=== PATIENT | male | born 1985 | race Caucasian/White ===

== ENCOUNTER 2023-08-23 19:27 | Emergency (ER) | payer OTHER, SELFPAY ==
[2023-08-23 19:45] VITALS: BP 171/130; PULSE 116; RESP 20; TEMP 37.9; O2SAT 99
[2023-08-23 22:28] VITALS: BP 202/132; PULSE 103; RESP 18; TEMP 37.3; O2SAT 98
[2023-08-23 23:10] LABS: Influenza A QL RT-PCR Negative (Negative); Influenza B QL RT-PCR Negative (Negative); RSV RNA, RT-PCR Negative (Negative); SARS-CoV-2 RNA PCR Positive (Negative)
[2023-08-23 23:40] LABS: Basophils Percent Auto 0.5 % (0.2-1.2); Eosinophils Percent Auto 0.5 % (0-4.4); Hematocrit 47.9 % (42.0-52.0); Hemoglobin 16.5 g/dL (14.0-18.0); Immature Granulocyte Absolute 0.04 K/mm3 (0.00-0.031); Immature Granulocyte Percent A 0.5 % (0-0.5); Lymphocytes Absolute Auto 0.96 K/mm3 (0.9-3.2); Lymphocytes Percent Auto 10.8 % (18.3-44.2); Mean Corpuscular HGB Conc 34.4 g/dl (32-36); Mean Corpuscular Hemoglobin 28.4 pg (26-34); Mean Corpuscular Volume 82.4 fl (80-100); Mean Platelet Volume 11.1 fl (7.4-10.4); Monocytes Absolute Auto 0.9 K/mm3 (0.1-0.6); Monocytes Percent Auto 9.6 % (2.6-8.5); Neutrophils Percent Auto 78.1 % (45.5-73.1); Platelet Count Result 222 k/mm3 (150-375); Red Blood Count 5.81 M/mm3 (4.6-6.20); Red Cell Distribution Width 13.2 % (11.5-14.5); White Blood Count 8.9 K/mm3 (4.5-10.0)
[2023-08-23 23:46] LABS: Alanine Aminotransferase 30 U/L (6-50); Albumin Level 4.8 g/dL (3.5-5.1); Alkaline Phosphatase 94 U/L (38-126); Anion Gap 8 mmol/L (8-16); Aspartate Amino Transferase 31 U/L (17-59); Bilirubin,Total 1.1 mg/dL (0.2-1.3); Blood Urea Nitrogen 14 mg/dL (9-20); Calcium 9.7 mg/dL (8.4-10.2); Carbon Dioxide 29 mmol/L (22-30); Chloride 103 mmol/L (98-107); Estimated CRCL calculation 114 ml/min; Estimated Glomerular Filt Rate > 60; Glucose 98 mg/dL (65-110); Potassium 3.2 mmol/L (3.4-5.0); Sodium 140 mmol/L (137-145)
--- NOTE | 2023-08-24 | ECG_ITS ---
Measurements Intervals [place] Rate: 106 P: 66 [place]: 166 QRS: -60 QRSD: 96 T: 132 QT: 327 QTc: 435 Interpretive Statements SINUS TACHYCARDIA LEFT ATRIAL ENLARGEMENT [-0.15mV P WAVE IN V1/V2] MARKED LEFT AXIS DEVIATION [QRS AXIS < -30] INCOMPLETE RIGHT BUNDLE BRANCH BLOCK [90+ ms QRS DURATION, TERMINAL R IN V1/V2, 40+ ms S IN I/aVL/V4/V5/V6] POSSIBLE ANTERIOR MYOCARDIAL INFARCTION , OF INDETERMINATE AGE [30 ms Q WAVE IN V3/V4, OR R < 0.2 mV IN V4] MODERATE T-WAVE ABNORMALITY, CONSIDER LATERAL ISCHEMIA [-0.1+ mV T WAVE IN I/aVL/V5/V6] NO PREVIOUS ECG AVAILABLE FOR COMPARISON Electronically Signed On 08-24-2023 15:23:00 AMMUNITION ASSEMBLY I LABORER by Ramu Leiva M.D.
[2023-08-24] MEDS: SODIUM CHLORIDE 0.9% IV 1,000 ML 999 ML IV CONT (00:15)
[2023-08-24 00:16] VITALS: BP 182/111; PULSE 120; RESP 23; O2SAT 96
[2023-08-24 00:17] VITALS: PULSE 110; RESP 15; O2SAT 98
[2023-08-24] MEDS: ACETAMINOPHEN 500 MG TABLET 1000 MG PO (00:20)
[2023-08-24] MEDS: hydrALAZINE HCL 20 MG/ML VIAL 10 MG IV PUSH (00:21)
--- NOTE | 2023-08-24 00:48 | ED.GENADULT ---
HPI - General Adult General Chief complaint: Recheck/Abnormal Lab/Rx Stated complaint: fever/htn Time Seen by Provider: 08/23/23 23:13 History of Present Illness HPI narrative: 37-year-old male presenting to emergency department for evaluation of hypertension increased body aches. Patient began having minor symptoms on Wednesday then then worsened into Wednesday. Patient does describe shortness of breath fatigue headache and body ache. Patient denies any chest pain Patient has history of hypertension but did not take his blood pressure medications today since she usually takes them at approximately 11:00 p.m.. Patient reports his blood pressure typically runs around 150 systolic. Related Data Allergies Allergy/AdvReac Type Severity Reaction Status Date / Time No Known Allergies Allergy Verified 08/23/23 19:28 Review of Systems Review of Systems: All systems reviewed & are unremarkable except as noted in HPI and below Exam Narrative: APPEARANCE: Well appearing, no pain, no distress, well-nourished. HEAD: normocephalic, atraumatic. EYES: PERRLA/EOMI, conjunctivae clear. NOSE: Normal no drainage EARS:TMS clear with good light reflex. THROAT: Pharynx clear, no exudate. NECK: Supple. No adenopathy, no masses. RESPIRATORY: Airway patent, respirations nonlabored. Clear to auscultation bilaterally, no rales, rhonchi, wheezing. CARDIOVASCULAR: Regular rate and rhythm without murmurs rubs or gallops. ABDOMINAL: Soft, nontender, nondistended, normal bowel sounds MUSCULOSKELETAL: Moves all extremities. Strength/ROM intact, No edema, No calf tenderness. NEURO: Alert. Cranial nerves II through XII intact. Grossly intact SKIN: Warm, dry. Normal Color Course Course Emergency Course: 37-year-old male presents emergency department for evaluation of increased generalized fatigue, body aches and hypertension. Patient was treated with his home medications for his blood pressure including his metoprolol losartan and amlodipine. Patient was also treated with a dose of IV hydralazine. Patient did test positive for COVID. patient did have a low-grade fever but has no leukocytosis and patient has a stable hemoglobin of 16.5. No significant abnormalities on the patient's CMP. Patient did test positive for COVID. Vital Signs Vital signs: Vital Signs Temperature 100.3 F H 08/23/23 19:45 Pulse Rate 116 H 08/23/23 19:45 Respiratory Rate 20 08/23/23 19:45 Blood Pressure 171/130 H 08/23/23 19:45 Pulse Oximetry 99 08/23/23 19:45 Oxygen Delivery Room Air 08/23/23 19:45 Temperature 98.3 F 08/24/23 01:42 Pulse Rate 88 08/24/23 02:14 Respiratory Rate 16 08/24/23 02:14 Blood Pressure 157/95 H 08/24/23 02:14 Pulse Oximetry 97 08/24/23 02:14 Oxygen Delivery Room Air 08/23/23 23:39 Medical Decision Making Differential Diagnosis Differential Diagnosis: COVID, pneumonia, influenza, RSV, hypertension Vital Signs Vital Signs: Vital Signs Temperature 100.3 F H 08/23/23 19:45 Pulse Rate 116 H 08/23/23 19:45 Respiratory Rate 20 08/23/23 19:45 Blood Pressure 171/130 H 08/23/23 19:45 Pulse Oximetry 99 08/23/23 19:45 Oxygen Delivery Room Air 08/23/23 19:45 Temperature 98.3 F 08/24/23 01:42 Pulse Rate 88 08/24/23 02:14 Respiratory Rate 16 08/24/23 02:14 Blood Pressure 157/95 H 08/24/23 02:14 Pulse Oximetry 97 08/24/23 02:14 Oxygen Delivery Room Air 08/23/23 23:39 Lab Data 08/23/23 22:46 08/23/23 22:46 Labs: Lab Results 08/23/23 08/23/23 08/24/23 Range/Units 22:27 22:46 00:34 WBC 8.9 (4.5-10.0) K/mm3 RBC 5.81 (4.6-6.20) M/mm3 Hgb 16.5 (14.0-18.0) g/dL Hct 47.9 (42.0-52.0) % MCV 82.4 (80-100) fl MCH 28.4 (26-34) pg MCHC 34.4 (32-36) g/dl RDW 13.2 (11.5-14.5) % Plt Count 222 (150-375) k/mm3 MPV 11.1 H (7.4-10.4) fl Immature Gran % (Auto) 0.5 (0-0.5) % Neut %
[2023-08-24 01:02] LABS: D Dimer < 0.27 ug/mL (<0.48)
[2023-08-24 01:05] VITALS: PULSE 117; RESP 15; O2SAT 99
[2023-08-24 01:16] VITALS: BP 184/110; PULSE 116; PULSE 118; RESP 15; O2SAT 99
[2023-08-24] MEDS: METOPROLOL TARTRATE 25 MG TABLET 100 MG PO (01:16)
[2023-08-24] MEDS: amLODIPine BESYLATE 5 MG TABLET 10 MG PO (01:16)
[2023-08-24] MEDS: LOSARTAN POTASSIUM 100 MG TABLET PO (01:17)
[2023-08-24] MEDS: KETOROLAC 15 MG/ML VIAL (*BKC) IV PUSH (01:29)
[2023-08-24 01:42] VITALS: TEMP 36.8
[2023-08-24 02:14] VITALS: BP 157/95; PULSE 88; RESP 16; O2SAT 97
== END 2023-08-24 02:22 | disposition home or self-care (01) ==
PROVIDERS: Emergency Provider Emergency Medicine
DX: U07.1 COVID-19 (principal); I10 Essential (primary) hypertension; R00.0 Tachycardia, unspecified; R94.31 Abnormal electrocardiogram [ECG] [EKG]; I45.10 Unspecified right bundle-branch block
CPT/HCPCS: 36415; 80053; 85025; 85380; 87637; 93005; 96361; 96374; 96375; 99284; A9270; J0360; J1885; J7030

== ENCOUNTER 2024-01-17 12:45 | Outpatient (CLI) | payer OTHER, SELFPAY ==
[2024-01-17 15:13] LABS: Basophils Percent Auto 0.4 % (0.2-1.2); Eosinophils Absolute Auto 0.3 K/mm3 (0-0.3); Hematocrit 45.5 % (42.0-52.0); Hemoglobin 15.5 g/dL (14.0-18.0); Immature Granulocyte Absolute 0.04 K/mm3 (0.00-0.031); Immature Granulocyte Percent A 0.4 % (0-0.5); Lymphocytes Absolute Auto 1.44 K/mm3 (0.9-3.2); Lymphocytes Percent Auto 15.2 % (18.3-44.2); Mean Corpuscular HGB Conc 34.1 g/dl (32-36); Mean Corpuscular Hemoglobin 28.9 pg (26-34); Mean Corpuscular Volume 84.7 fl (80-100); Mean Platelet Volume 11.5 fl (7.4-10.4); Monocytes Absolute Auto 0.5 K/mm3 (0.1-0.6); Neutrophils Absolute Auto 7.2 K/mm3 (1.3-6.7); Platelet Count Result 226 k/mm3 (150-375); Red Blood Count 5.37 M/mm3 (4.6-6.20); Red Cell Distribution Width 13.3 % (11.5-14.5); White Blood Count 9.5 K/mm3 (4.5-10.0)
[2024-01-17 15:19] LABS: Alanine Aminotransferase 24 U/L (6-50); Albumin Level 4.6 g/dL (3.5-5.1); Alkaline Phosphatase 64 U/L (38-126); Anion Gap 9 mmol/L (4-12); Aspartate Amino Transferase 43 U/L (17-59); Bilirubin,Total 0.9 mg/dL (0.2-1.3); Blood Urea Nitrogen 18 mg/dL (9-20); Calcium 9.1 mg/dL (8.4-10.2); Carbon Dioxide 31 mmol/L (22-30); Chloride 102 mmol/L (98-107); Cholesterol 210 mg/dL (0-200); Estimated Glomerular Filt Rate > 60; Glucose 97 mg/dL (65-110); HDL Direct 33 mg/dL; Potassium 3.9 mmol/L (3.4-5.0); Sodium 142 mmol/L (137-145); Triglycerides 229 mg/dL (<150)
[2024-01-17 15:30] LABS: LDL Cholesterol Direct 139 mg/dL
[2024-01-17 15:41] LABS: Creatinine Urine 161.5 mg/dL
[2024-01-17 16:00] LABS: MALB Creatinine Ratio 198.9 mg/g (0-30); Microalbumin Urine Random 321.3 mg/L (0-16.7)
== END 2024-01-17 12:46 | disposition home or self-care (01) ==
LOC: ANHGOSHLAB 12:47
PROVIDERS: PCP Internal Medicine; Visit Provider Nurse Practitioner
DX: E78.5 Hyperlipidemia, unspecified (principal); I10 Essential (primary) hypertension; Z13.29 Encounter for screening for other suspected endocrine disorder
CPT/HCPCS: 36415; 80053; 80061; 82043; 85025

== ENCOUNTER 2024-03-22 08:45 | Outpatient (CLI) | payer OTHER, SELFPAY ==
--- NOTE | 2024-03-22 08:52 | EST_ITS ---
Patient Info Name: Umberto Trevizoi Age: 38 years : 1985 Gender: Male Ht: 67 in Wt: 245 lbs BSA: 2.34 m2 HR: 76 bpm BP: 173 / 100 mmHg Exam Date: 03/22/2024 9:13 AM Exam Location: Echo Lab Patient Status: Outpatient Admit Date: 03/22/2024 Staff Ordering Physician: Nena Huitron NP Restaurant Kitchen And Service Manager: Kassandra Cardozo RDCS Attending Provider: DR. VELASQUEZ Referring Physician: Elana BARRAGAN; Exercise Technologist: Kassandra Cardozo RDCS Exercise Physician: Tre Velasquez DO Exam Type: CA stress echo Study Info Indications R06.02 - Shortness of breath Treadmill exercise stress echocardiogram is performed. Summary 1. 1. Negative Luis exercise stress test for ischemic ST changes by ECG criteria. 2. 2. Reduced functional capacity, achieving 10 METs of workload. 3. 3. Baseline hypertension with hypertensive response to exercise. 4. 4. Appropriate HR response to exercise. 5. 5. Appropriate HR recovery at 1 minute post exercise. 6. 6. Negative stress echocardiogram for ischemia by wall motion analysis. 7. 7. Patient informed of the above results. Stress Echo Findings Left Ventricle Appropriate increase in LV endocardial thickening with systole. Appropriate augmentation of contractility with systole. No wall motion abnormality. Left Ventricle Normal LV systolic function, no wall motion abnormality. Moderate LVH. Protocol: Luis Stress ECG Details Stage: REST Duration (min): 2 min : 40 sec Speed (mph): 0.0 Grade (%): 0 HR (bpm): 76 SBP (mmHg): 173 DBP (mmHg): 100 METS: --- Stage: REST Duration (min): 12 min : 16 sec Speed (mph): 0.0 Grade (%): 0 HR (bpm): 77 SBP (mmHg): 173 DBP (mmHg): 100 METS: --- Stage: STAGE 1 Duration (min): 1 min : 0 sec Speed (mph): 1.7 Grade (%): 10 HR (bpm): 103 SBP (mmHg): 173 DBP (mmHg): 100 METS: --- Stage: STAGE 1 Duration (min): 2 min : 0 sec Speed (mph): 1.7 Grade (%): 10 HR (bpm): 111 SBP (mmHg): 173 DBP (mmHg): 100 METS: --- Stage: STAGE 1 Duration (min): 3 min : 0 sec Speed (mph): 1.7 Grade (%): 10 HR (bpm): 113 SBP (mmHg): 213 DBP (mmHg): 84 METS: --- Stage: STAGE 2 Duration (min): 1 min : 0 sec Speed (mph): 2.5 Grade (%): 12 HR (bpm): 124 SBP (mmHg): 213 DBP (mmHg): 84 METS: --- Stage: STAGE 2 Duration (min): 2 min : 0 sec Speed (mph): 2.5 Grade (%): 12 HR (bpm): 131 SBP (mmHg): 219 DBP (mmHg): 90 METS: --- Stage: STAGE 2 Duration (min): 3 min : 0 sec Speed (mph): 2.5 Grade (%): 12 HR (bpm): 134 SBP (mmHg): 219 DBP (mmHg): 90 METS: --- Stage: STAGE 3 Duration (min): 1 min : 0 sec Speed (mph): 3.4 Grade (%): 14 HR (bpm): 143 SBP (mmHg): 235 DBP (mmHg): 93 METS: --- Stage: STAGE 3 Duration (min): 2 min : 0 sec Speed (mph): 3.4 Grade (%): 14 HR (bpm): 152 SBP (mmHg): 235 DBP (mmHg): 93 METS: --- Stage: STAGE 3 Duration (min): 2 min : 1 sec Speed (mph): 0.0 Grade (%): 0 HR (bpm): 152 SBP (mm
== END 2024-03-22 08:46 | disposition home or self-care (01) ==
PROVIDERS: PCP Internal Medicine; Visit Provider Nurse Practitioner
DX: R06.02 Shortness of breath (principal); I10 Essential (primary) hypertension
CPT/HCPCS: 93351

== ENCOUNTER 2024-05-25 21:59 | Observation (INO) | payer OTHER, SELFPAY ==
--- NOTE | ~2024-05-25 | XR_ITS ---
EXAMINATION: XR chest 1V portable DATE: 05/25/2024 22:33 INDICATION: Altered mental status. TECHNIQUE: A single frontal view of the chest was obtained. COMPARISON: None. FINDINGS: There is no pneumonia, pleural effusion, or pneumothorax. The heart size is normal. IMPRESSION: 1. No acute cardiopulmonary disease. Reviewed, dictated and finalized at location A. WARE TECHNICAL LEAD
--- NOTE | ~2024-05-25 | CT_ITS ---
EXAMINATION: CTA brain carotid DATE: 05/25/2024 22:28 INDICATION: Cerebrovascular accident. TECHNIQUE: Computed tomographic angiography (CTA) of the head was performed with 100 mL Omnipaque-350 intravenous contrast. CTA of the neck was performed with intravenous contrast. Automated exposure co ntrol and iterative reconstruction technique were employed. The dose-length product was 1170.17 mGy-c m. Maximum intensity projection and volume rendered 3D-reconstructions were created by the [employer]Vouchercloudi st on a separate workstation. COMPARISON: Head CT 05/25/2024 FINDINGS: HEAD CTA: There is no intracranial hemorrhage, acute infarction, or abnormal intracranial mass lesion . The ventricles are normal in size. There is mild mucosal thickening in the basal sinuses. The orbit s are normal. The mastoid air cells are normal. The vertebral arteries are codominant. There is no si gnificant stenosis of basilar artery or the posterior cerebral arteries. There is no significant sten osis of the intracranial internal carotid arteries or anterior or middle cerebral arteries. Anterior communicating artery is normal. There is no aneurysm. The posterior communicating arteries are normal . NECK CTA: There are no pathologically enlarged lymph nodes. There is no significant stenosis of the v ertebral arteries. There is no visible plaque in the proximal internal carotid arteries. There is 0% stenosis of the proximal right internal carotid artery relative to normal distal artery lumen diamete r (NASCET criteria). There is 0% stenosis of the proximal left internal carotid artery relative to no rmal distal artery lumen diameter. 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 There is chroni c height loss of numerous vertebral bodies, which may be developmental. IMPRESSION: 1. Normal brain. No aneurysm or significant intracranial arterial stenosis 2. 0% stenosis of the proximal internal carotid arteries relative to normal distal artery lumen diame ters (NASCET criteria). Reviewed, dictated and finalized at location A. ANALYSIS WELL LOGGING OPERATOR IMPRESSION: 1. Normal brain. No aneurysm or significant intracranial arterial stenosis 2. 0% stenosis of the proximal internal carotid arteries relative to normal dis paty artery lumen diameters (NASCET criteria).
--- NOTE | ~2024-05-25 | CT_ITS ---
EXAMINATION: CT brain wo con DATE: 05/25/2024 22:21 INDICATION: Altered mental status. TECHNIQUE: Computed tomography (CT) of the head was performed without intravenous contrast. The mA wa s adjusted according to patient size. Iterative reconstruction technique was employed. The dose-lengt h product was 756.67 mGy-cm. COMPARISON: None FINDINGS: There is no intracranial hemorrhage, acute infarction, or abnormal intracranial mass lesion . The ventricles are normal in size. There is mild mucosal thickening in the paranasal sinuses. The o rbits are normal. The mastoid air cells are normal. IMPRESSION: 1. Normal brain. I called this result to Dr. Vanegas. Reviewed, dictated and finalized at location A. TRICAL PRODUCTS ENGINEER
--- NOTE | ~2024-05-25 | MR_ITS ---
EXAMINATION: MR brain/brain stem wo con DATE: 05/27/2024 08:59 INDICATION: Syncope. Transient ischemic episode. Altered mental status. TECHNIQUE: Magnetic resonance imaging (MRI) of the brain and brainstem was performed without intraven ous contrast. Sequences included sagittal and axial T1-weighted SE, axial diffusion-weighted FS SE, a xial 3D SWAN, axial T2-weighted FLAIR, and axial T2-weighted FSE. Apparent diffusion coefficient (ADC ) maps were created. COMPARISON: None. FINDINGS: There are no areas of restricted diffusion to suggest acute infarction. No intracranial hemorrhage or abnormal intracranial mass lesion. A few tiny foci of nonspecific increased T2-weighted signal inten sity in the cerebral white matter which is within normal limits for age. There are no intraparenchyma l signal abnormalities seen on the other pulse sequences. The ventricles are symmetric and normal in size. There are no abnormal extra-axial fluid collections. Flow voids are seen in the cerebral arteri es on the T2-weighted sequences consistent with their expected patency. Mild mucosal thickening in th e bilateral ethmoid sinuses. Visualized orbits and soft tissues are unremarkable. IMPRESSION: 1. Normal for age brain. No acute intracranial process. Reviewed, dictated and finalized at location A. H STRIPPER
[2024-05-25 22:03] VITALS: BP 220/96; PULSE 90; RESP 18; TEMP 36.6; O2SAT 98
--- NOTE | 2024-05-25 22:06 | ECG_ITS ---
Test Date: 2024-05-25 22:34:21 Measurements Intervals [place] Rate: 98 P: 72 [place]: 152 QRS: -25 QRSD: 113 T: 71 QT: 382 QTc: 489 Interpretive Statements SINUS RHYTHM POSSIBLE LEFT ATRIAL ENLARGEMENT INCOMPLETE RIGHT BUNDLE BRANCH BLOCK DELAYED PRECORDIAL R/S TRANSITION ST-T WAVE ABNORMALITY IN LAT/HIGH LAT LEADS- CONSIDER ISCHEMIA BASELINE ARTIFACT- I, III, AVR, AVL ABNORMAL ECG No previous ECG available for comparison Electronically Signed On 05-26-2024 06:37:18 GRADES 1 THRU 6 HOME TEACHER by Tre Gannon D.O.
[2024-05-25 22:07] VITALS: BP 220/96; PULSE 96; RESP 15; TEMP 36.6; O2SAT 100
[2024-05-25 22:21] LABS: Basophils Absolute Auto 0.1 K/mm3 (0.0-0.1); Basophils Percent Auto 0.5 % (0.2-1.2); Eosinophils Absolute Auto 0.2 K/mm3 (0-0.3); Eosinophils Percent Auto 1.6 % (0-4.4); Hematocrit 46.4 % (42.0-52.0); Hemoglobin 17.3 g/dL (14.0-18.0); Immature Granulocyte Absolute 0.08 K/mm3 (0.00-0.031); Immature Granulocyte Percent A 0.6 % (0-0.5); Lymphocytes Absolute Auto 3.28 K/mm3 (0.9-3.2); Lymphocytes Percent Auto 23.2 % (18.3-44.2); Mean Corpuscular HGB Conc 37.3 g/dl (32-36); Mean Corpuscular Volume 80.4 fl (80-100); Mean Platelet Volume 10.6 fl (7.4-10.4); Monocytes Absolute Auto 0.7 K/mm3 (0.1-0.6); Monocytes Percent Auto 5.2 % (2.6-8.5); Neutrophils Absolute Auto 9.8 K/mm3 (1.3-6.7); Neutrophils Percent Auto 68.9 % (45.5-73.1); Platelet Count Result 310 k/mm3 (150-375); Red Blood Count 5.77 M/mm3 (4.6-6.20); Red Cell Distribution Width 12.6 % (11.5-14.5); White Blood Count 14.2 K/mm3 (4.5-10.0)
--- NOTE | 2024-05-25 22:29 | ED.NEUROSD ---
HPI - Neuro Symptoms/Deficit General Chief Complaint: Suspected CVA Stated Complaint: dizzy/nausea/vomiting/AMS Time Seen by Provider: 05/25/24 22:29 Source: patient Mode of arrival: ambulatory Limitations: clinical condition History of Present Illness HPI Narrative: PATIENT IS 38 YEARS OLD WHITE MALE CAME TO THE ED WITH HIS BECAUSE OF DIZZINESS AND VOMITING. THE IS TELLING ME THAT THE PATIENT GOT DIZZY, EVERYTHING SPINNING, ASSOCIATED NAUSEA AND FREQUENT VOMITING AND STARTED ACTING FUNNY. HISTORY OF HYPERTENSION, STARTED ON WOULD GO THE 2 WEEKS AGO, PATIENT WAS STRESS LATELY ABOUT THE PROCESS OF ADOPTION. HAVE UPPER RESPIRATORY SYMPTOMS 1 WEEK AGO, EXPOSED TO HIS BROTHER IN LOW HAD SIMILAR SYMPTOMS. . PATIENT DENIES ANY FOCAL WEAKNESS OR NUMBNESS. Related Data Allergies Allergy/AdvReac Type Severity Reaction Status Date / Time No Known Allergies Allergy Verified 05/12/24 10:37 Review of Systems Review of Systems: ROS unobtainable: Yes unobtainable due to medical condition PMFSH Past Medical History Medical History GERD (gastroesophageal reflux disease) Hyperlipidemia Hypertension Kidney stones FORREST (obstructive sleep apnea) Surgical History Surgical History History of extraction of renal calculus (~2021) Family History Family History Grandparent Cancer Heart disease Depression Father Hypertension Heart disease Depression Diabetes mellitus Mother Heart disease Thyroid disorder Sibling Hypertension Social History Social History Smoking status: Never smoker Alcohol intake: unknown Substance use type: does not use Do You Feel Safe in your Home?: Yes Lack of Transportation: No Lack of Food: Never True Current Housing: I Have Housing Concerned About Future Housing: No Difficulty Paying Gas/Electric Bills: No Difficulty Paying for Meds: No Currently Unemployed: No Education: High School Diploma/GED Difficulty w/ Childcare or Family Care: No Living arrangements: with family Exam Narrative: GENERAL APPEARANCE: WELL-DEVELOPED, WELL-NOURISHED , NON COOPERATIVE WITH QUESTION, WHISPERING, HYPERVENTILATING, SHAKING,HOLDING VOMITING BAG IN HANDS SKIN: NORMAL COLOR HEAD: NORMOCEPHALIC, NONTRAUMATIC EYES: CLEAR CONJUNCTIVA NECK: SUPPLE, NONTENDER CHEST AND RESPIRATORY: AIRWAY PATENT, NO RESPIRATORY DISTRESS, NO ACCESSORY MUSCLE USE HEART: REGULAR RATE/RHYTHM ABDOMEN: SOFT, NONTENDER, NO ORGANOMEGALY, QUIET BOWEL SOUNDS MUSCULOSKELETAL: PATIENT IS ABLE TO LIFT UPPER EXTREMITY SLOWLY MAXIMUM UP TO 45 DEGREE WITH SHAKING BILATERALLY. PATIENT UNABLE TO LEFT LOWER EXTREMITY BILATERALLY ABOVE THE LEVEL OF THE BED BECAUSE OF GENERAL WEAKNESS NEUROLOGIC: ALERT AND ORIENTED ?3, SURGICAL INSTRUMENT MAKER IS NORMAL TESTED, Course Vital Signs Vital signs: Vital Signs Temperature 36.6 C 05/25/24 22:03 Pulse Rate 90 05/25/24 22:03 Respiratory Rate 18 05/25/24 22:03 Blood Pressure 220/96 H 05/25/24 22:03 Pulse Oximetry 98 05/25/24 22:03 Temperature 36.6 C 05/25/24 22:07 Pulse Rate 92 05/25/24 22:48 Respiratory Rate 16 05/25/24 22:47 Blood Pressure 198/101 H 05/25/24 22:47 Pulse Oximetry 100 05/25/24 22:47 Oxygen Delivery Room Air 05/25/24 22:07 MDM - Neuro Symptoms/Deficit MDM Narrative Medical decision making narrative: PATIENT CAME TO THE ED BY PRIVATE CAR WITH HIS COMPLAINING OF DIZZINESS, NAUSEA, VOMITING, SHAKING, HYPERVENTILATING GENERALLY WEAK FROM HEAD TO TOES UNABLE TO STAND OR WALK VITAL SIGNS SHOWING BLOOD PRESSURE 220/96 PHYSICAL EXAMINATION SHOWING UNCOOPERATIVE PATIENT, WHISPERING, HYPERVENTILATING, SHAKING ALL OVER, WEAK ALL OVER, VOMITING UNABLE TO GET ANY CLEAR HISTORY FROM HIM, HIS AT THE BEDSIDE DIFFERENTIAL DIAGNOSIS CVA IS LESS LIKELY, ANXIETY LIKE SYMPTOMS, VERTIGO, DEHYDRATION, ELECTROLYTE IMBALANCE, PATIENT STARTED ON [place] RECENTLY WHICH CAN CAUSE DIZZINESS, NAUSEA, VOMITING AND UPSET STOMACH. COVID TEST CAME BACK POSITIVE BLOOD WORKUP TODAY INCLUDES CBC, CMP, TROPONIN, URINE DRUG SCREEN, ALCOHOL LEVEL, EKG, CHEST X-RAY, CT HEAD WITHOUT CONTRAST, CTA HEAD AND NECK SHOWED WBC OF 14.2, POTASSIUM 2.5, CHEST X-RAY SHOWED NO ACUTE ABNORMALITIES, CT HEAD WITHOUT CONTRAST SHOWED NO ACUTE ABNORMALITY CTA HEAD AND NECK SHOWED NO ACUTE ABNORMALITIES Differential Diagnosis Differential diagnosis: Likely other ( ABOVE) Medical Records Attestation: I reviewed the patient's medical records. Lab Data Attestation: I reviewed the patient's lab results. 05/25/24 22:15 05/25/24 22:15 Labs: Lab Results 05/25/24 05/25/24 05/26/24 Range/Units 22:15 23:39 00:17 WBC 14.2 H (4.5-10.0) K/mm3 RBC 5.77 (4.6-6.20) M/mm3 Hgb 17.3 (14.0-18.0) g/dL Hct 46.4 (42.0-52.0) % MCV 80.4 (80-100) fl MCH 30.0 (26-34) pg MCHC 37.3 H (32-36) g/dl RDW 12.6 (11.5-14.5) % Plt Count 310 (150-375) k/mm3 MPV 10.6 H (7.4-10.4) fl Immature Gran % (Auto) 0.6 H (0-0.5) % Neut % (Auto) 68.9 (45.5-73.1) % Lymph % (Auto) 23.2 (18.3-44.2) % [place] % (Auto) 5.2 (2.6-8.5) % Eos % (Auto) 1.6 (0-4.4) % Baso % (Auto) 0.5 (0.2-1.2) % Lymph # (Auto) 3.28 H (0.9-3.2) K/mm3 [place] # (Auto) 0.7 H (0.1-0.6) K/mm3 Eos # (Auto) 0.2 (0-0.3) K/mm3 Baso # (Auto) 0.1 (0.0-0.1) K/mm3 Abs Immat Gran (auto) 0.08 H (0.00-0.031) K/mm3 Absolute Neuts (auto) 9.8 H (1.3-6.7) K/mm3 Absolute Nucleated RBC 0.000 (0.0-0.012) K/mm3 Nucleated RBC % 0.0 (0.0-0.2) % PT 12.0 (11.1-14.7) Seconds INR 0.8 APTT 24.9 (22.3-36.8) Seconds Sodium 140 (137-145) mmol/L Potassium 2.5 L* (3.4-5.0) mmol/L Chloride 102 (98-107) mmol/L Carbon Dioxide 26 (22-30) mmol/L Anion Gap 12 (4-12) mmol/L BUN 17 (9-20) mg/dL Creatinine 1.10 (0.7-1.3) mg/dL Estim Creat Clear Calc Not Reportable Estimated GFR > 60 (59 - ) Glucose 136 H (65-110) mg/dL Calcium 9.7 (8.4-10.2) mg/dL Total Bilirubin 1.0 (0.2-1.3) mg/dL AST 33 (17-59) U/L ALT 24 (6-50) U/L Alkaline Phosphatase 114 (38-126) U/L Troponin I < 0.012 < 0.012 (0.000-0.034) ng/mL Total Protein 9.0 H (6.3-8.2) g/dL Albumin 5.1 (3.5-5.1) g/dL Urine Color Yellow (Yellow) Urine Appearance Clear (Clear) Urine pH 7.5 (5.0-9.0) Ur Specific [place] 1.034 (1.001-1.035) Urine Protein 1+ H (Negative) mg/dL Urine Glucose (UA) Negative (Negative) mg/dL Urine Ketones 1+ H (Negative) mg/dL Ur Blood (Man) Negative (Negative) Urine Nitrate Negative (Negative) Urine Bilirubin Negative (Negative) Urine Urobilinogen 0.2 (<2.0) mg/dL Leukocyte Esterase Rfl Negative (Negative) HUMBERTO/UL Urine RBC 0-2 (0-2) /hpf Urine WBC 0-5 (0-3) /hpf Ur Squamous Epith Cells None seen (Few) /hpf Urine Bacteria None seen /hpf Urine Casts 0-2 Urine Opiates Screen Pending Urine Methadone Screen Pending Ur Barbiturates Screen Pending Ur Phencyclidine Scrn Pending Ur Amphetamine Screen Pending U Benzodiazepines Scrn Pending Urine Cocaine Screen Pending U Cannabinoids Screen Pending Ethyl Alcohol < 10 (<10) mg/dL Influenza A (RT-PCR) Negative (Negative) Influenza B (RT-PCR) Negative (Negative) RSV (RT-PCR) Negative (Negative) SARS-CoV-2 RNA (RT-PCR) Positive A (Negative) Imaging Data Radiologist's impression: Impressions Head CT 11/21/24 22:23 IMPRESSION: 1. Normal brain. I called this result to Dr. Vanegas. Head/Neck CTA 05/25/24 22:33 IMPRESSION: 1. Normal brain. No aneurysm or significant intracranial arterial stenosis 2. 0% stenosis of the proximal internal carotid arteries relative to normal distal artery lumen diameters (NASCET criteria). Chest X-Ray 05/25/24 22:37 IMPRESSION: 1. No acute cardiopulmonary disease. ECG Data EKG #1: Attestation: I personally reviewed and interpreted this ECG as follows: ECG completion date: 05/25/24 Interpretation: NORMAL SINUS RHYTHM 98 BEATS PER MINUTE, LEFT ATRIAL ENLARGEMENT, BORDERLINE LEFT AXIS DEVIATION, INCOMPLETE RIGHT BUNDLE-BRANCH BLOCK, NONSPECIFIC ST T-WAVE ABNORMALITY, NO PREVIOUS EKG AVAILABLE FOR COMPARISON Critical Care Time Critical Care Time Critical Care Time: No Discharge Plan Discharge Clinical Impression: Vertigo, Acute hyperventilation syndrome, Acute hypokalemia, COVID-19 Patient Disposition: Still a Patient Condition: Stable Additional Instructions: ADMIT TO HOSPITALIST Prescriptions: No Action amlodipine 10 mg tablet 10 mg PO DAILY Qty: 90 1RF [place] 0.25 mg/0.5 mL pen injector 0.25 mg subcut WEEKLY Qty: 2 0RF Rx Instructions: administer weeks 1 through 4 of therapy hydrochlorothiazide 12.5 mg tablet 12.5 mg PO DAILY Qty: 90 1RF losartan 100 mg tablet 100 mg PO DAILY Qty: 90 1RF metoprolol tartrate 100 mg tablet 100 mg PO BID Qty: 180 1RF Follow-up/Referrals: Kelechi Padgett DO [Primary Care Provider] -
[2024-05-25 22:31] VITALS: BP 193/100; PULSE 92; RESP 16; O2SAT 100
[2024-05-25 22:32] LABS: INR 0.8; Partial Thromboplastin Time 24.9 Seconds (22.3-36.8)
[2024-05-25] MEDS: ONDANSETRON INJ 4 MG/2 ML VIAL 8 MG IV PUSH (22:37)
[2024-05-25 22:44] LABS: Alanine Aminotransferase 24 U/L (6-50); Albumin Level 5.1 g/dL (3.5-5.1); Alkaline Phosphatase 114 U/L (38-126); Anion Gap 12 mmol/L (4-12); Aspartate Amino Transferase 33 U/L (17-59); Blood Urea Nitrogen 17 mg/dL (9-20); Calcium 9.7 mg/dL (8.4-10.2); Carbon Dioxide 26 mmol/L (22-30); Chloride 102 mmol/L (98-107); Estimated Glomerular Filt Rate > 60; Glucose 136 mg/dL (65-110); Potassium 2.5 mmol/L (3.4-5.0); Sodium 140 mmol/L (137-145)
[2024-05-25 22:45] LABS: Troponin I < 0.012 ng/mL (0.000-0.034)
[2024-05-25 22:47] VITALS: BP 198/101; PULSE 94; RESP 16; O2SAT 100
[2024-05-25 22:48] VITALS: PULSE 92
[2024-05-25] MEDS: SODIUM CHLORIDE 0.9% IV 1,000 ML 999 ML IV CONT (23:09)
[2024-05-25] MEDS: POTASSIUM CHLORIDE 20 MEQ ER TABLET 40 MEQ PO (23:10)
[2024-05-25] MEDS: MECLIZINE HCL 25 MG TABLET PO (23:12)
[2024-05-25] MEDS: POTASSIUM CHLORIDE INJ 40 MEQ in SODIUM CHLORIDE 0.9% IV 500 ML 130 MEQ IVPB (23:39)
[2024-05-25 23:55] LABS: Ethanol < 10 mg/dL (<10)
[2024-05-26] VITALS (14 sets, daily range): BP systolic 156–179; BP diastolic 77–100; PULSE 64–102; RESP 16–20; TEMP 35.8–37.4; O2SAT 97–100
--- NOTE | 2024-05-26 | ECHO_ITS ---
Patient Info Name: Umberto Suarez Age: 38 years : 1985 Gender: Male Ht: 67 in Wt: 247 lbs BSA: 2.35 m2 HR: 102 bpm BP: 179 / 97 mmHg Heart Rhythm: Sinus Rhythm Technical Quality: Good Exam Date: 05/26/2024 11:01 AM Exam Location: Echo Lab Patient Status: Inpatient Admit Date: 05/26/2024 Staff Ordering Physician: Kylie Ridley APRN Dock Superintendent: Michele Moon RDCS Attending Provider: Kylie Ridley APRN Referring Physician: Khai MUÑOZ; Exam Type: CA echo doppler w bubble study Study Info Indications - hypertensive/possible TIA Complete two-dimensional, color flow and Doppler transthoracic echocardiogram is performed with agitated saline. Summary 1. Left ventricular chamber dimension is normal. 2. Left ventricular systolic function is normal, estimated at 60-65%. 3. There is moderate concentric increased left ventricular wall thickness. 4. The left ventricular diastolic function is grade I diastolic dysfunction. 5. E/e' 12 is mildly elevated. 6. Left atrial chamber dimension is mildly enlarged. 7. There is trace mitral valve regurgitation. 8. No pulmonary hypertension, estimated pulmonary arterial systolic pressure is 17 mmHg. Left Ventricle E/e' 12 is mildly elevated. Left ventricular chamber dimension is normal. Left ventricular systolic function is normal, estimated at 60-65%. There is moderate concentric increased left ventricular wall thickness. The left ventricular diastolic function is grade I diastolic dysfunction. Right Ventricle Right ventricular chamber dimension is normal. Right ventricular systolic function is normal and with normal TAPSE 3.1 cm. Left Atria Left atrial chamber dimension is mildly enlarged. Right Atria Right atrial chamber dimension is normal. Atrial Septum Intact interatrial septum visualized by 2D and agitated saline imaging. Agitated saline injection with and without valsalva maneuver opacified right side cardiac chambers without shunt to left side cardiac chambers. Aortic Valve The aortic valve is trileaflet. There is no aortic valve stenosis. There is no aortic valve regurgitation. Pulmonic Valve There is no pulmonic regurgitation. Mitral Valve There is no mitral valve stenosis. There is trace mitral valve regurgitation. Tricuspid Valve There is no tricuspid valve regurgitation. No pulmonary hypertension, estimated pulmonary arterial systolic pressure is 17 mmHg. Pericardium/Pleural There is no pericardial effusion. Inferior Vena Cava Normal inferior vena cava with >50% collapse upon inspiration consistent with normal right atrial pressure, 5 mmHg. Aorta The aortic root size at the sinus of Valsalva is normal. Left Ventricular Outflow Tract Name Value Normal LVOT 2D LVOT Diameter 2.0 cm LVOT Doppler LVOT Peak Gradient 7 mmHg LVOT Mean Gradient 4 mmHg LVOT VTI 25 cm LVOT VTI/AV VTI Ratio 0.7 LVOT Stroke Volume 76 ml LVOT CO 6.2 l/min LVOT CI 2.6 l/min/m2 Pulmonic Valve Name Value Normal PV Doppler PV Peak Gradient 5 mmHg Mitral Valve Name Value Normal MV Doppler MV Decel [place] 738 cm/s2 MV PHT 40 ms MV Area (PHT) 5.5 cm2 4.0-5.0 MV Diastolic Function MV E Peak Velocity 103 cm/s MV A Peak Velocity 111 cm/s MV E/A 0.9 MV Decel Time 139 ms MV Annular TDI MV E/e' (Septal) 14.7 <=8.0 MV E/e' (Lateral) 11.0 <=8.0 MV E/e' (Average) 12.8 Tricuspid Valve Name Value Normal TV Regurgitation Doppler TR Peak Velocity 171 cm/s TR Peak Gradient 12 mmHg Estimated PAP/RSVP RA Pressure 5 mmHg <=5 PA Systolic Pressure 17 mmHg <36 RV Systolic Pressure 17 mmHg <36 Aortic Valve Name Value Normal AV Doppler AV Peak Velocity 168 cm/s AV Peak Gradient 11 mmHg AV Mean Gradient 7 mmHg AV VTI 34 cm AV Area (Cont Eq VTI) 2.3 cm2 >=3.0 AV Area (Cont Eq Jake) 2.4 cm2 AV Regurgitation 2D LVOT Area 3.1 cm2 Ventricles Name Value Normal LV Dimensions 2D/MM IVS Diastolic Thickness (2D) 1.1 cm 0.6-1.0 LVID Diastole (2D) 5.2 cm 4.2-5.8 LVIW Diastolic Thickness (2D) 1.2 cm 0.6-1.0 LVID Systole (2D) 3.2 cm 2.5-4.0 LVOT Diameter 2.0 cm LV Mass (2D Cubed) 236.85 g 88.00-224.00 LV Mass Index (2D Cubed) 101 g/m2 49-115 Relative Wall Thickness (2D) 0.47 LV Fractional Shortening/Ejection Fraction 2D/MM LV Fractional Shortening (2D) 39 % 25-43 LV EF (2D Teicholz) 69 % 52-72 LV Diastolic Volume (4C MOD) 141 ml LV EF (4C MOD) 61 % LV Diastolic Volume (2C MOD) 128 ml LV EF (2C MOD) 65 % LV Diastolic Volume (BP MOD) 139 ml 62-150 LV Diastolic Volume Index (BP MOD) 59 ml/m2 34-74 LV Systolic Volume (BP MOD) 50 ml 21-61 LV Systolic Volume Index (BP MOD) 21 ml/m2 11-31 LV EF (BP MOD) 64 % 52-72 LV Diastolic Length (4C) 9.2 cm LV Systolic Length (4C) 6.6 cm LV Stroke Volume (4C MOD) 86 ml Atria Name Value Normal LA Dimensions LA Volume (4C A-L) 43 ml LA Volume (BP A-L) 44 ml RA Dimensions RA Area (4C) 18.6 cm2 <=18.0 Report Signatures
[2024-05-26 00:08] LABS: Troponin I < 0.012 ng/mL (0.000-0.034)
[2024-05-26 00:22] LABS: Influenza A QL RT-PCR Negative (Negative); Influenza B QL RT-PCR Negative (Negative); RSV RNA, RT-PCR Negative (Negative); SARS-CoV-2 RNA PCR Positive (Negative)
[2024-05-26] MEDS: LORazepam INJ (*CRX) 2 MG/ML VIAL IV PUSH (00:29)
[2024-05-26 00:32] LABS: Add Urine Microscopic? YES; Appearance Urine Clear (Clear); Bacteria Urine None Seen /hpf; Bilirubin Urine Negative (Negative); Blood Urine Negative (Negative); Color Urine Yellow (Yellow); Glucose Urine UA Negative (Negative); Ketones Urine 1+ mg/dL (Negative); Leukocyte Esterase Ur Negative LEU/UL (Negative); Nitrate Urine Negative (Negative); Non Pathogenic Casts 0-2; Protein Urine 1+ mg/dL (Negative); RBC Urine 0-2 /hpf (0-2); Specific Grav Ur 1.034 (1.001-1.035); Squamous Epithelial Cell Urine None Seen /hpf (Few); Urobilinogen Urine 0.2 mg/dL (<2.0); WBC Urine 0-5 /hpf (0-3); pH Urine 7.5 (5.0-9.0)
[2024-05-26 00:47] LABS: Amphetamine Screen Urine Negative (Negative); Barbiturate Screen Urine Negative (Negative); Benzodiazepines Screen Urine Negative (Negative); Cannabinoid Screen Urine Negative (Negative); Cocaine Screen Urine Negative (Negative); Methadone Screen Urine Negative (Negative); Opiate Screen Urine Negative (Negative); Phencyclidine Screen Urine Negative (Negative)
[2024-05-26] MEDS: LABETALOL HCL INJ 100 MG/20 ML VIAL 20 MG IV PUSH (01:08)
--- NOTE | 2024-05-26 01:41 | PC.NURSE ---
This RN notified of bed placement at this time. Report called to V[facility]ctor on 3 med surg. Pt to go up by migel Alexander.
[2024-05-26] MEDS: POTASSIUM CHLORIDE 20 MEQ PACKET (FOR LIQUID) 40 MEQ PO ×2 (09:09→20:25)
[2024-05-26 09:54] LABS: Hematocrit 44.6 % (42.0-52.0); Hemoglobin 15.5 g/dL (14.0-18.0); Mean Corpuscular HGB Conc 34.8 g/dl (32-36); Mean Corpuscular Volume 83.5 fl (80-100); Mean Platelet Volume 10.5 fl (7.4-10.4); Platelet Count Result 228 k/mm3 (150-375); Red Blood Count 5.34 M/mm3 (4.6-6.20); Red Cell Distribution Width 12.8 % (11.5-14.5); White Blood Count 13.9 K/mm3 (4.5-10.0)
[2024-05-26 10:09] LABS: Cholesterol 208 mg/dL (0-200); HDL Direct 37 mg/dL; Triglycerides 182 mg/dL (<150)
[2024-05-26 10:20] LABS: Alanine Aminotransferase 20 U/L (6-50); Albumin Level 4.6 g/dL (3.5-5.1); Alkaline Phosphatase 95 U/L (38-126); Anion Gap 7 mmol/L (4-12); Aspartate Amino Transferase 22 U/L (17-59); Blood Urea Nitrogen 10 mg/dL (9-20); Carbon Dioxide 31 mmol/L (22-30); Chloride 103 mmol/L (98-107); Estimated Glomerular Filt Rate > 60; Glucose 112 mg/dL (65-110); LDL Cholesterol Direct 123 mg/dL; Magnesium 2.1 mg/dL (1.6-2.3); Potassium 3.6 mmol/L (3.4-5.0); Sodium 141 mmol/L (137-145)
[2024-05-26 11:33] LABS: Hemoglobin A1C 4.7 % (<5.7)
[2024-05-26] MEDS: NIFEdipine 30 MG TAB.ER.24 PO (11:38)
[2024-05-26] MEDS: LOSARTAN POTASSIUM 100 MG TABLET PO (11:38)
[2024-05-26] MEDS: METOPROLOL TARTRATE 50 MG TAB 100 MG PO ×2 (11:38→20:25)
--- NOTE | 2024-05-26 15:54 | P.HP_ITS ---
H&P: HPI History of Present Illness Date/Time: 05/26/24 15:54 Chief Complaint: Nausea/Vomiting/Dizziness/syncopal episode Narrative: Patient is a 38-year-old male who presented to the emergency department due to a syncopal episode at home. Per ER medical chart patient has has been reported he had become dizzy, nauseous and started vomiting. He was unable to communicate appropriately with during this episode. Per patient he was unaware ast o what had happened prior to him arriving to the ER. Upon evaluation in the ED per chart patient was alert and oriented x 4 answering all question appropria tely and moving all extremities. CT head and CTA negative for any acute intracranial process in 0% stenosis bilateral. Patient did leukocytosis otherwise the labs were unremarkable. Patient however was hypertension urgency with BP 220/96 which remain elevated even after administration of antihypertensive medications. Patient did have complaints of dizziness, headache, and diaphoresis. Patient denied any chest pain or ABD pain. Patient was admitted to the medical unit for continued treatment of hypertensive urgency and to out CVA was also found to be COVID positive. Review of Systems Review of Systems: All systems reviewed & are unremarkable except as noted in HPI and below PMFSH Past Medical History Medical History GERD (gastroesophageal reflux disease) Hyperlipidemia Hypertension Kidney stones FORREST (obstructive sleep apnea) Surgical History Surgical History History of extraction of renal calculus (~2021) Family History Family History Grandparent Depression Heart disease Cancer Myocardial infarct Father Diabetes mellitus Depression Heart disease Hypertension Mother Heart disease Thyroid disorder Hypotension Sibling Hypertension Social History Social History Smoking status: Never smoker Alcohol intake: current Drinks per week: 1 Substance use: never Substance use type: does not use Do You Feel Safe in your Home?: Yes Lack of Transportation: No Lack of Food: Never True Current Housing: I Have Housing Concerned About Future Housing: No Difficulty Paying Gas/Electric Bills: No Difficulty Paying for Meds: No Currently Unemployed: No Education: Trade/Vocational Certificate Difficulty w/ Childcare or Family Care: No Living arrangements: with family Spiritual care concerns: No Meds Home Medications and Allergies Home Medications Medication Instructions Recorded Confirmed Type amlodipine 10 mg tablet 10 mg PO DAILY #90 tabs 05/12/24 05/26/24 Rx hydrochlorothiazide 12.5 mg tablet 12.5 mg PO DAILY #90 tabs 05/12/24 05/26/24 Rx losartan 100 mg tablet 100 mg PO DAILY #90 tabs 05/12/24 05/26/24 Rx metoprolol tartrate 100 mg tablet 100 mg PO BID #180 tabs 05/12/24 05/26/24 Rx semaglutide (weight loss) 0.25 0.25 mg (0.5 mL) subcut WEEKLY #2 05/12/24 05/26/24 Rx mg/0.5 mL subcutaneous pen mL injector (Wegovy) DM-GG/garzl-OL-csliiviurcwz 10-200 1 ea PO DAILY 05/26/24 05/26/24 History mg(dy)/2-15-500mg(nt)tablet,capsule (Coricidin HBP Day-Night) Allergies Allergy/AdvReac Type Severity Reaction Status Date / Time onion Allergy Diarrhea Verified 05/26/24 02:12 Vital Signs Vital Signs - 24 hr 05/25/24 22:03 05/25/24 22:07 05/25/24 22:31 Temperature 98 F 97.9 F Pulse Rate 90 96 92 Respiratory Rate 18 15 16 Blood Pressure 220/96 H 220/96 H 193/100 H Pulse Oximetry 98 100 100 Oxygen Delivery Room Air Oxygen Flow Rate 05/25/24 22:47 05/25/24 22:48 05/26/24 01:37 Temperature Pulse Rate 94 92 84 Respiratory Rate 16 16 Blood Pressure 198/101 H 157/99 H Pulse Oximetry 100 100 Oxygen Delivery Oxygen Flow Rate 05/26/24 02:00 05/26/24 03:02 05/26/24 04:00 Temperature 96.4 F L Pulse Rate 93 100 Respiratory Rate 20 Blood Pressure 171/95 H 172/100 H Pulse Oximetry 100 Oxygen Delivery Oxygen Flow Rate 05/26/24 04:42 05/26/24 06:00 05/26/24 08:00 Temperature 97.8 F Pulse Rate 100 102 H Respiratory Rate 20 Blood Pressure 179/97 H Pulse Oximetry 97 100 Oxygen Delivery Nasal Cannula Oxygen Flow Rate 2 05/26/24 11:38 05/26/24 08:00 05/26/24 12:00 Temperature Pulse Rate 95 64 Respiratory Rate Blood Pressure Pulse Oximetry 98 Oxygen Delivery Nasal Cannula Oxygen Flow Rate 2 05/26/24 14:00 Temperature 97.7 F Pulse Rate 67 Respiratory Rate 20 Blood Pressure 156/77 H Pulse Oximetry 100 Oxygen Delivery Oxygen Flow Rate Exam Narrative: * GENERAL: Pleasant Alert and oriented x 3 pleasant male. No acute distress. * EYES:. PERRLA. * HEENT: Moist mucous membranes. * LUNGS: Clear to auscultation bilaterally. No accessory muscle use. * CARDIOVASCULAR: Regular rate and rhythm. No murmur. No JVD. S1-S2 * ABDOMEN: Soft, round, obese, non tenderness and non-distended. No palpable masses. * EXTREMITIES: No edema. Non-tender * SKIN: No rashes or lesions. Skin warm, dry. * NEUROLOGIC: No focal neurological deficits. CN II-XII grossly intact * PSYCHIATRIC: Appropriate mood and affect. Good judgement and insight. No visual or auditory hallucinations. No suicidal or homicidal ideation. H&P: Results Labs Labs: Short CBC 05/25/24 05/26/24 Range/Units 22:15 09:47 WBC 14.2 H 13.9 H (4.5-10.0) K/mm3 Hgb 17.3 15.5 (14.0-18.0) g/dL Hct 46.4 44.6 (42.0-52.0) % Plt Count 310 228 (150-375) k/mm3 [facility] 05/25/24 05/26/24 22:15 09:47 Sodium 140 141 Potassium 2.5 L* 3.6 Chloride 102 103 Carbon Dioxide 26 31 H BUN 17 10 D Creatinine 1.10 0.90 Glucose 136 H 112 H Calcium 9.7 9.0 Cardiac Enzymes 05/25/24 05/25/24 Range/Units 22:15 23:39 Troponin I < 0.012 < 0.012 (0.000-0.034) ng/mL Liver Function 05/25/24 05/26/24 Range/Units 22:15 09:47 Total Bilirubin 1.0 1.0 (0.2-1.3) mg/dL AST 33 22 (17-59) U/L ALT 24 20 (6-50) U/L Alkaline Phosphatase 114 95 (38-126) U/L Albumin 5.1 4.6 (3.5-5.1) g/dL Urine 05/26/24 Range/Units 00:17 Urine Color Yellow (Yellow) Urine Appearance Clear (Clear) Urine pH 7.5 (5.0-9.0) Ur Specific [place] 1.034 (1.001-1.035) Urine Protein 1+ H (Negative) mg/dL Urine Glucose (UA) Negative (Negative) mg/dL Imaging CT scan - head: Radiologist's impression: EXAMINATION: CT brain wo con DATE: 05/25/2024 22:21 INDICATION: Altered mental status. TECHNIQUE: Computed tomography (CT) of the head was performed without intravenous contrast. The mA was adjusted according to patient size. Iterative reconstruction technique was employed. The dose-length product was 756.67 mGy- cm. COMPARISON: None FINDINGS: There is no intracranial hemorrhage, acute infarction, or abnormal intracranial mass lesion. The ventricles are normal in size. There is mild mucosal thickening in the paranasal sinuses. The orbits are normal. The mastoid air cells are normal. IMPRESSION: 1. Normal brain. I called this result to Dr. Vanegas. EXAMINATION: CTA brain carotid DATE: 05/25/2024 22:28 INDICATION: Cerebrovascular accident. TECHNIQUE: Computed tomographic angiography (CTA) of the head was performed with 100 mL Omnipaque-350 intravenous contrast. CTA of the neck was performed with intravenous contrast. Automated exposure control and iterative reconstruction technique were employed. The dose-length product was 1170.17 mGy-cm. Maximum intensity projection and volume rendered 3D-reconstructions were created by the technologist on a separate workstation. COMPARISON: Head CT 05/25/2024 FINDINGS: HEAD CTA: There is no intracranial hemorrhage, acute infarction, or abnormal intracranial mass lesion. The ventricles are normal in size. There is mild mucosal thickening in the basal sinuses. The orbits are normal. The mastoid air cells are normal. The vertebral arteries are codominant. There is no significant stenosis of basilar artery or the posterior cerebral arteries. There is no significant stenosis of the intracranial internal carotid arteries or anterior or middle cerebral arteries. Anterior communicating artery is normal. There is no aneurysm. The posterior communicating arteries are normal. NECK CTA: There are no pathologically enlarged lymph nodes. There is no significant stenosis of the vertebral arteries. There is no visible plaque in the proximal internal carotid arteries. There is 0% stenosis of the proximal right internal carotid artery relative to normal distal artery lumen diameter (NASCET criteria). There is 0% stenosis of the proximal left internal carotid artery relative to normal distal artery lumen diameter. 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 There is chronic height loss of numerous vertebral bodies, which may be developmental. IMPRESSION: 1. Normal brain. No aneurysm or significant intracranial arterial stenosis 2. 0% stenosis of the proximal internal carotid arteries relative to normal distal artery lumen diameters (NASCET criteria). Assessment and Plan Assessment and plan (1) Hypertensive urgency: Code(s): I16.0 - Hypertensive urgency Status: Acute Assessment and Plan: * BP 220/96 POA * was given labetalol IV in the emergency department * Systolic continued to run greater than 180's * Resume patient's home losartan and metoprolol * Discontinued his amlodipine 10 and hydrochlorothiazide * And initiated him on Procardia * Improvement to BP continue to monitor and if still remains high will increase Procardia to 60 * Echocardiogram with LVEF 60-65% with moderate concentric increased left ventricular wall thickness 1 diastolic dysfunction * Lipid panel showed hypertriglyceridemia * Patient at this time does not want to start any cholesterol medication r ecently started will go via 1 month ago for weight loss (2) AMS (altered mental status): Code(s): R41.82 - Altered mental status, unspecified Status: Acute Assessment and Plan: * Likely secondary to hypertensive urgency and COVID-19 * CT and CTA head showed no acute intracranial process and 0% stenosis * MRI is pending * Symptoms have resolved (3) COVID-19: Code(s): U07.1 - COVID-19 Status: Acute Assessment and Plan: * Supportive care. * Monitor for COVID pneumonia, acute respiratory distress syndrome. * supplemental oxygen as needed to maintain 90% oxygen saturation Currently on ROOM AIR * CXR with no cardiopulmonary acute process * Antipyretics * Antiemetics (4) Hyperlipidemia: Qualifiers: Hyperlipidemia type: mixed hyperlipidemia Qualified Code(s): E78.2 - Mixed hyperlipidemia Code(s): E78.5 - Hyperlipidemia, unspecified Status: Acute Assessment and Plan: * Hypertriglyceridemia * Patient wants to hold off on any new medication since he just started Wegovy (5) Obesity: Qualifiers: Obesity type: due to excess calories Obesity classification: adult class 2 (BMI 35 - 39.9) Serious obesity comorbidity presence: with serious comorbidity Body mass index: BMI 38.0-38.9 Qualified Code(s): E66.01 - Morbid (severe) obesity due to excess calories; Z68.38 - Body mass index [BMI] 38.0- 38.9, adult Code(s): E66.9 - Obesity, unspecified Status: Acute Assessment and Plan: * encourage increased on physical activity and lifestyle modifications * Stress monitoring * Started Wegovy * Diet exercise counseling done. * consult to dietitian Plan Code status: Full code per patient DVT prophylaxis: Lovenox Stress ulcer prophylaxis: Protonix 40 daily PT/OT notes: Ambulatory Disposition: Patient continues admission to the medical unit for hypertensive urgency COVID-19 plans for MRI to rule out any acute . stroke. If blood pressure remains stable overnight can likely discharge after no acute findings. Can continue supportive care at home for COVID-19. Quality VTE Prophylaxis VTE prophylaxis: pharmacologic ordered -Patient's previous records reviewed on admission -ER notes reviewed in detail on admission -discussed all findings and current treatment plan with patient/Family/POA -Consultations reviewed for recommendations -Patient's disposition for safe discharge discussed with case investigator Dictation performed by [employer] direct speech recognition software, therefore cut out machine operator variants and typographical errors may occur. Hospitalist [facility] Advance Care Plan I have confirmed that the patient's Advanced Care Plan is present, code status is documented, or surrogate decision maker is listed in patient medical record.: Yes Medication Reconciliation I have utilized all available resources to obtain, update and review the patients current medications (includes all prescriptions, OTC, herbals, cannabis, and nutritional supplements).: Yes The patient is not eligible for med reconciliation; the patient is in a emergent medical situation where delaying treatment would jeopardize the patients heal th.: No
[2024-05-26 16:44] LABS: Glucose Point of Care 125 mg/dl (65-105)
[2024-05-27] VITALS (8 sets, daily range): BP systolic 150–159; BP diastolic 95–98; PULSE 56–82; RESP 16–18; TEMP 36.4–36.6; O2SAT 97–100
[2024-05-27 06:23] LABS: Hematocrit 45.2 % (42.0-52.0); Hemoglobin 15.3 g/dL (14.0-18.0); Mean Corpuscular HGB Conc 33.8 g/dl (32-36); Mean Corpuscular Hemoglobin 29.2 pg (26-34); Mean Corpuscular Volume 86.3 fl (80-100); Mean Platelet Volume 10.7 fl (7.4-10.4); Platelet Count Result 236 k/mm3 (150-375); Red Blood Count 5.24 M/mm3 (4.6-6.20); White Blood Count 11.5 K/mm3 (4.5-10.0)
[2024-05-27 06:43] LABS: Alanine Aminotransferase 18 U/L (6-50); Albumin Level 4.2 g/dL (3.5-5.1); Alkaline Phosphatase 98 U/L (38-126); Anion Gap 3 mmol/L (4-12); Aspartate Amino Transferase 22 U/L (17-59); Bilirubin,Total 1.1 mg/dL (0.2-1.3); Blood Urea Nitrogen 13 mg/dL (9-20); Calcium 9.1 mg/dL (8.4-10.2); Carbon Dioxide 34 mmol/L (22-30); Chloride 103 mmol/L (98-107); Estimated Glomerular Filt Rate > 60; Glucose 94 mg/dL (65-110); Potassium 3.8 mmol/L (3.4-5.0); Sodium 140 mmol/L (137-145)
[2024-05-27] MEDS: METOPROLOL TARTRATE 50 MG TAB 100 MG PO (09:21)
[2024-05-27] MEDS: NIFEdipine 30 MG TAB.ER.24 60 MG PO (09:22)
[2024-05-27] MEDS: LOSARTAN POTASSIUM 100 MG TABLET PO (09:22)
[2024-05-27] MEDS: PANTOPRAZOLE 40 MG TABLET PO (09:23)
--- NOTE | 2024-05-27 14:04 | P.DS_ITS ---
DS: Admitting Diagnosis Discharge Date 05/27/2024 Admitting Diagnosis Hypertensive urgency/COVID/Stroke R/O DS: Discharge Diagnosis Discharge Diagnosis (1) Hypertensive urgency: Code(s): I16.0 - Hypertensive urgency Status: Acute (2) AMS (altered mental status): Code(s): R41.82 - Altered mental status, unspecified Status: Acute (3) COVID-19: Code(s): U07.1 - COVID-19 Status: Acute (4) Hyperlipidemia: Qualifiers: Hyperlipidemia type: mixed hyperlipidemia Qualified Code(s): E78.2 - Mixed hyperlipidemia Code(s): E78.5 - Hyperlipidemia, unspecified Status: Acute (5) Obesity: Qualifiers: Obesity type: due to excess calories Obesity classification: adult class 2 (BMI 35 - 39.9) Serious obesity comorbidity presence: with serious comorbidity Body mass index: BMI 38.0-38.9 Qualified Code(s): E66.01 - Morbid (severe) obesity due to excess calories; Z68.38 - Body mass index [BMI] 38.0- 38.9, adult Code(s): E66.9 - Obesity, unspecified Status: Acute Plan Disposition: Discharged to home DS: Summary Hospital Course Reason for hospitalization: Hypertensive urgency/COVID/Stroke R/O Hospital Course: Admission: Patient is a 38-year-old male who presented to the emergency department due to a syncopal episode at home. Per ER medical chart patient has has been reported he had become dizzy, nauseous and started vomiting. He was unable to communicate appropriately with during this episode. Per patient he was unaware ast o what had happened prior to him arriving to the ER. Upon evaluation in the ED per chart patient was alert and oriented x 4 answering all question appropriately and moving all extremities. CT head and CTA negative for any acute intracranial process in 0% stenosis bilateral. Patient did leukocytosis otherwise the labs were unremarkable. Patient however was hypertension urgency with BP 220/96 which remain elevated even after administration of antihypertensive medications. Patient did have complaints of dizziness, headache, and diaphoresis. Patient denied any chest pain or ABD pain. Patient was admitted to the medical unit for continued treatment of hypertensive urgency and to out CVA was also found to be COVID positive. Patient CT head, CTA head, and MRI showed no abnormal findings. Patient had received labetelol IVP in the ED but continued to have hypertension with systolic >170. I resumed his losartan and metoprolol but discontinued his HCTZ and amlodipine and started patient on Procardia with improvement to BP. Patient was COVID positive but remained on RA. Patient symptoms had fully resolved with no further episodes during his admission. Alert and oriented with neuro deficits. Patient discharged to home reinforced BP control and continue with supportive care for COVID. Status at Discharge Functional status at discharge: independent ambulation Overall status at discharge: patient is progressing back to baseline Time Spent with Patient Time attestation: Total time spent providing and/or coordinating discharge services: Time spent: Greater than 30 minutes Exam Narrative: * GENERAL: Pleasant Alert and oriented x 3 pleasant male. No acute distress. * EYES:. PERRLA. * HEENT: Moist mucous membranes. * LUNGS: Clear to auscultation bilaterally. No accessory muscle use. * CARDIOVASCULAR: Regular rate and rhythm. No murmur. No JVD. S1-S2 * ABDOMEN: Soft, round, obese, non tenderness and non-distended. No palpable masses. * EXTREMITIES: No edema. Non-tender * SKIN: No rashes or lesions. Skin warm, dry. * NEUROLOGIC: No focal neurological deficits. CN II-XII grossly intact * PSYCHIATRIC: Appropriate mood and affect. Good judgement and insight. No visual or auditory hallucinations. No suicidal or homicidal ideation. DS: Data Data Completed and Pending Labs on day of discharge: Labs from last 24 hours 05/27/24 05/25/24 05:48 22:06 WBC 11.5 H RBC 5.24 Hgb 15.3 Hct 45.2 MCV 86.3 MCH 29.2 MCHC 33.8 RDW 13.0 Plt Count 236 MPV 10.7 H Sodium 140 Potassium 3.8 Chloride 103 Carbon Dioxide 34 H Anion Gap 3 L BUN 13 Creatinine 1.20 Estim Creat Clear Calc Not Reportable Estimated GFR > 60 Glucose 94 POC Capillary Glucose 125 H Calcium 9.1 Total Bilirubin 1.1 AST 22 ALT 18 Alkaline Phosphatase 98 Total Protein 7.0 Albumin 4.2 Imaging Radiologist's impression: Imaging CT scan - head: Radiologist's impression: EXAMINATION: CT brain wo con DATE: 05/25/2024 22:21 INDICATION: Altered mental status. TECHNIQUE: Computed tomography (CT) of the head was performed without intravenous contrast. The mA was adjusted according to patient size. Iterative reconstruction technique was employed. The dose-length product was 756.67 mGy- cm. COMPARISON: None FINDINGS: There is no intracranial hemorrhage, acute infarction, or abnormal intracranial mass lesion. The ventricles are normal in size. There is mild mucosal thickening in the paranasal sinuses. The orbits are normal. The mastoid air cells are normal. IMPRESSION: 1. Normal brain. I called this result to Dr. Vanegas. EXAMINATION: CTA brain carotid DATE: 05/25/2024 22:28 INDICATION: Cerebrovascular accident. TECHNIQUE: Computed tomographic angiography (CTA) of the head was performed with 100 mL Omnipaque-350 intravenous contrast. CTA of the neck was performed with intravenous contrast. Automated exposure control and iterative reconstruction technique were employed. The dose-length product was 1170.17 mGy-cm. Maximum intensity projection and volume rendered 3D-reconstructions were created by the technologist on a separate workstation. COMPARISON: Head CT 05/25/2024 FINDINGS: HEAD CTA: There is no intracranial hemorrhage, acute infarction, or abnormal intracranial mass lesion. The ventricles are normal in size. There is mild mucosal thickening in the basal sinuses. The orbits are normal. The mastoid air cells are normal. The vertebral arteries are codominant. There is no significant stenosis of basilar artery or the posterior cerebral arteries. There is no significant stenosis of the intracranial internal carotid arteries or anterior or middle cerebral arteries. Anterior communicating artery is normal. There is no aneurysm. The posterior communicating arteries are normal. NECK CTA: There are no pathologically enlarged lymph nodes. There is no significant stenosis of the vertebral arteries. There is no visible plaque in the proximal internal carotid arteries. There is 0% stenosis of the proximal right internal carotid artery relative to normal distal artery lumen diameter (NASCET criteria). There is 0% stenosis of the proximal left internal carotid artery relative to normal distal artery lumen diameter. 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 There is chronic height loss of numerous vertebral bodies, which may be developmental. IMPRESSION: 1. Normal brain. No aneurysm or significant intracranial arterial stenosis 2. 0% stenosis of the proximal internal carotid arteries relative to normal distal artery lumen diameters (NASCET criteria). Discharge Plan Discharge Attending physician on discharge: Von Matute Discharging Clinician: Kylie Ridley Anticipated Discharge Date/Time: 05/27/24 13:54 Patient Disposition: Home, Self-Care Activity: may shower and as tolerated Diet: heart healthy Discharge Instructions: You are being discharged after treatment and evaluation hypertensive emergency, COVID and possible stroke which was ruled out with diagnostic images including CT, CTA, and MRI. Your blood pressure was extremely elevated which can increase you risk for stroke and heart attack. I did discontinue your amlodipine and hydrochlorothiazide and replaced it with Procardia daily. I encourage daily blood pressure monitoring, heart healthy diet, activity, and weight lose to improve blood pressure. You also tested positive for COVID-19 I recommend supportive care at home may take acetaminophen for fever and mild aches and pain, stay hydrated and activity. I have attached information on hypertension, COVID, and TIA How can you care for yourself at home? ? Keep track of any new symptoms or changes in your symptoms. ? Rest until you feel better. ? Be safe with medicines. Take your medicines exactly as prescribed. Call your doctor if you think you are having a problem with your medicine. ? Do not drive after taking a prescription pain medicine. ? Ensure to follow-up with primary care physician as indicated and provide updated medication list provided to you at discharge. When should you call for help? Call 911 anytime you think you may need emergency care. For example, call if: ? You passed out (lost consciousness). Call your doctor now or seek immediate medical care if: ? You have new symptoms like fever, difficulty breathing, Chest pain, vomiting, or rash. ? You have new or different pain. ? You are confused and are having trouble thinking clearly. ? Your symptoms are getting worse. Watch closely for changes in your health, and be sure to contact your doctor if: ? You do not get better as expected. Patient Instructions: Antibiotic Form, Transient Ischemic Attack (DC), Chronic Hypertension (DC), Hypertensive Crisis (DC), Hypertension (DC) Patient Language: [place]er Stand Alone Forms: General Discharge Information Follow-up/Referrals: Kelechi Padgett, DO [Primary Care Provider] - 2 Weeks (Blood pressure monitoring and potassium monitoring ) Discharge Medications: New nifedipine 60 mg tablet extended release 60 mg PO DAILY Qty: 30 0RF potassium chloride 20 mEq tablet extended release 20 meq PO DAILY Qty: 14 0RF Continued Wegovy 0.25 mg/0.5 mL pen injector 0.25 mg subcut WEEKLY Qty: 2 0RF Rx Instructions: administer weeks 1 through 4 of therapy losartan 100 mg tablet 100 mg PO DAILY Qty: 90 1RF metoprolol tartrate 100 mg tablet 100 mg PO BID Qty: 180 1RF Coricidin HBP Day-Night 10-200 mg(dy)/2 -15-500 mg(nt) Tablet And Capsule, Sequential 1 ea PO DAILY Discontinued amlodipine 10 mg tablet 10 mg PO DAILY Qty: 90 1RF hydrochlorothiazide 12.5 mg tablet 12.5 mg PO DAILY Qty: 90 1RF Date of admission: 05/26/24 00:13 Primary Care Provider: Kelechi Padgett Admitting Provider: Jorge L Lawrence V. Attending physician on admission: Kylie Ridley Condition: Stable Quality VTE Prophylaxis VTE prophylaxis: pharmacologic ordered Hospitalist MIPS Heart Failure (Exclusion) Patient has history of Heart Transplant or Left Ventricular Assistive Device?: No IF YES, STOP HERE Heart Failure (Qualifier) Patient has current or prior documentation of LVEF less than or equal to 40%, or mod/servere depressed LVSF?: No IF NO, STOP HERE
== END 2024-05-27 14:57 | disposition home or self-care (01) ==
LOC: ANHED 05-26 00:11 → ANH3MEDSUR 05-26 07:56
PROVIDERS: Admitting Provider Internal Medicine; Emergency Provider Emergency Medicine; PCP Internal Medicine; Visit Provider Nurse Practitioner Family
DX: U07.1 COVID-19 (principal); I16.0 Hypertensive urgency; I10 Essential (primary) hypertension; F45.8 Other somatoform disorders; R41.82 Altered mental status, unspecified; E78.2 Mixed hyperlipidemia; E66.01 Morbid (severe) obesity due to excess calories; Z68.38 Body mass index [BMI] 38.0-38.9, adult; E87.6 Hypokalemia; G47.33 Obstructive sleep apnea (adult) (pediatric); K21.9 Gastro-esophageal reflux disease without esophagitis; Z79.899 Other long term (current) drug therapy; Z91.018 Allergy to other foods; Z87.442 Personal history of urinary calculi
CPT/HCPCS: 36415; 70450; 70496; 70498; 70551; 71045; 80053; 80061; 80307; 81001; 82077; 82948; 83036; 83735; 84484; 85025; 85027; 85610; 85730; 87637; 93005; 93306; 96361; 96374; 96375; 99285; A9270; G0378; J2060; J2405; J3480; J7030; J7040; Q9967

== ENCOUNTER 2025-05-10 16:07 | Outpatient (CLI) | payer OTHER, SELFPAY ==
[2025-05-10 19:44] LABS: Hematocrit 44.9 % (42.0-52.0); Hemoglobin 15.5 g/dL (14.0-18.0); Immature Granulocyte Percent A 0.3 % (0-0.5); Lymphocytes Absolute Auto 1.66 K/mm3 (0.9-3.2); Mean Corpuscular HGB Conc 34.5 g/dl (32-36); Mean Corpuscular Hemoglobin 29.4 pg (26-34); Mean Corpuscular Volume 85.2 fl (80-100); Nucleated Red Blood Cells Absolute Auto 0.000 K/mm3 (0.0-0.012); Nucleated Red Blood Cells Perc 0.0 % (0.0-0.2); Platelet Count Result 239 k/mm3 (150-375); Red Blood Count 5.27 M/mm3 (4.6-6.20); White Blood Count 9.6 K/mm3 (4.5-10.0)
[2025-05-10 19:57] LABS: Alanine Aminotransferase 21 U/L (6-50); Albumin Level 4.6 g/dL (3.5-5.1); Alkaline Phosphatase 73 U/L (38-126); Anion Gap 6 mmol/L (4-12); Aspartate Amino Transferase 60 U/L (17-59); Bilirubin,Total 0.7 mg/dL (0.2-1.3); Blood Urea Nitrogen 23 mg/dL (9-20); Calcium 9.2 mg/dL (8.4-10.2); Carbon Dioxide 30 mmol/L (22-30); Chloride 104 mmol/L (98-107); Cholesterol 213 mg/dL (0-200); Estimated Glomerular Filt Rate 57; Glucose 85 mg/dL (65-110); HDL Direct 36 mg/dL; Potassium 3.5 mmol/L (3.4-5.0); Sodium 140 mmol/L (137-145); Total Protein 7.6 g/dL (6.3-8.2); Triglycerides 288 mg/dL (<150)
[2025-05-10 20:11] LABS: Add Urine Microscopic? YES; Appearance Urine Cloudy (Clear); Glucose Urine UA Negative (Negative); Leukocyte Esterase Ur Negative LEU/UL (Negative); Need Manual Microscopic Reviewed; Nitrate Urine Negative (Negative); Non Pathogenic Casts >20; Specific Grav Ur 1.032 (1.001-1.035)
[2025-05-10 20:50] LABS: MALB Creatinine Ratio 20.9 mg/g (0-30)
== END 2025-05-10 16:08 | disposition home or self-care (01) ==
LOC: ANHGOSHLAB 16:07
PROVIDERS: PCP Nurse Practitioner; Visit Provider Nurse Practitioner
DX: E78.2 Mixed hyperlipidemia (principal); Z13.29 Encounter for screening for other suspected endocrine disorder; I10 Essential (primary) hypertension; R35.0 Frequency of micturition; E87.6 Hypokalemia
CPT/HCPCS: 36415; 80053; 80061; 81001; 82043; 85025